=== PATIENT | male | born 1995 | race Hispanic/Latino ===

== ENCOUNTER 2022-06-01 00:56 | Emergency (ER) | payer SELFPAY ==
[2022-06-01] MEDS ORDERED: Ketorolac Tromethamine 30 MG/ML VIAL ONE (01:30)
== END 2022-06-01 03:59 | disposition home or self-care (01) ==
LOC: ERS 00:56
DX: S43.101A Unspecified dislocation of right acromioclavicular joint, initial encounter (principal); W19.XXXA Unspecified fall, initial encounter
CPT/HCPCS: 23650; 96372; J1885